=== PATIENT | male | born 2000 | race Two or more races ===

== ENCOUNTER 2025-02-10 00:37 | Emergency (ER) | payer SELFPAY ==
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
[2025-02-10 01:19] VITALS: BP 143/83; PULSE 78; RESP 18; TEMP 36.7; O2SAT 98
[2025-02-10] MEDS: AMOXICILLIN/POT CLAV 875 TABLET 1 TAB PO (01:36)
[2025-02-10] MEDS: NAPROXEN 250 MG TABLET 500 MG PO (01:37)
[2025-02-10] MEDS: DIPHTH,PERTUSS(ACELL),TET VAC 0.5 ML SYR- ADULT IMi (01:38)
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
== END 2025-02-10 01:44 | disposition home or self-care (01) ==
LOC: SERX 01:38
PROVIDERS: Emergency Provider Emergency Medicine; PCP Family Medicine
DX: S63.284A Dislocation of proximal interphalangeal joint of right ring finger, initial encounter (principal); W22.8XXA Striking against or struck by other objects, initial encounter; Z23 Encounter for immunization
CPT/HCPCS: 26770; 73130; 90471; 90715; 99283; A9270